=== PATIENT | female | born 1960 | race Caucasian/White ===

== ENCOUNTER 2024-11-23 15:11 | Emergency (ER) | payer OTHER ==
[~2024-11-23] VITALS: Ht 160 cm; Wt 68.2 kg
[~2024-11-23 15:11] MED LIST: MOTRIN800 MG PO; PERCOCET 5/325M1 TAB PO
[2024-11-23 15:19] VITALS: BP 170/112
[2024-11-23] MEDS ORDERED: Diph, Acellular Pertussis, Tet 0.5 ML/VIAL (Tdap) SDV IM ONE (15:20)
[2024-11-23] MEDS ORDERED: IBUPROFEN 200 MG/TAB PO ONE (15:20)
[2024-11-23 15:31] VITALS: BP 139/84
[2024-11-23 15:46] VITALS: BP 124/86
[2024-11-23 16:00] VITALS: BP 129/84
[2024-11-23] MEDS ORDERED: LORTAB 5/3255 MG PO (16:00)
[2024-11-23 16:16] VITALS: BP 129/84
== END 2024-11-23 16:18 | disposition home or self-care (01) | DRG 563 ==
LOC: ED 15:11
DX: S62.622A Displaced fracture of middle phalanx of right middle finger, initial encounter for closed fracture (principal); S61.230A Puncture wound without foreign body of right index finger without damage to nail, initial encounter; W23.0XXA Caught, crushed, jammed, or pinched between moving objects, initial encounter; Y92.009 Unspecified place in unspecified non-institutional (private) residence as the place of occurrence of the external cause